=== PATIENT | female | born 1960 | race Caucasian/White ===

== ENCOUNTER → 2017-05-16 | Outpatient (CLI) | payer BC, SELFPAY ==
[~2017-05-16] MED LIST: Adipex-P37.5 MG PO; Anecream 4% Ki1 EACH; CLON.5 PO; CRUTCH3 USE; ESTRTP; HYDACE5 PO; ORACONB; Roxicodone15 MG PO; SERT100 PO; VIT B12 INJECTION
== END | disposition home or self-care (01) ==
LOC: OLS 08:57
DX: E55.9 Vitamin D deficiency, unspecified (principal)
CPT/HCPCS: 82306

== ENCOUNTER → 2018-06-20 | Outpatient (CLI) | payer BC ==
[2018-06-20 14:10] LABS: Stool Occult Bld Immuno 1 Negative (NEGATIVE)
== END ==
LOC: LAB 09:50 → LAB SHORT 09:50 → LAB FUT 06-10 15:55
PROVIDERS: Student in an Organized Health Care Education/Training Program
DX: D50.9 Iron deficiency anemia, unspecified (principal)
CPT/HCPCS: 82274

== ENCOUNTER → 2018-09-25 | Outpatient (CLI) | payer OTHER ==
[~2018-09-25] MED LIST changes: +CYAN1000I IM; +VITAMIN D310000 UNIT PO
[2018-09-25 18:08] LABS: Free Thyroxine 0.79 ng/dL (0.70-1.60)
[2018-09-25 18:11] LABS: Thyroid Stimulating Hormone 0.858 uIU/mL (0.360-4.800)
== END | disposition home or self-care (01) ==
LOC: LAB 17:39 → LAB SHORT 17:39
PROVIDERS: Internal Medicine Hematology & Oncology
DX: R53.81 Other malaise (principal); R53.83 Other fatigue
CPT/HCPCS: 84439; 84443

== ENCOUNTER 2018-11-12 09:40 | Day surgery (SDC) | payer OTHER ==
[~2018-11-12] VITALS: Ht 165.1 cm; Wt 184.0 kg
== END 2018-11-12 12:04 | disposition home or self-care (01) ==
LOC: ORSCSDS 09:40
PROVIDERS: Internal Medicine Gastroenterology
PROC: 0DJD8ZZ Inspection of Lower Intestinal Tract, Via Natural or Artificial Opening Endoscopic (ICD-10-PCS; principal; 2018-11-12 10:45)
DX: D50.9 Iron deficiency anemia, unspecified (principal); Z98.84 Bariatric surgery status; K64.8 Other hemorrhoids; Z79.899 Other long term (current) drug therapy
CPT/HCPCS: J2704; J7120

== ENCOUNTER 2019-03-06 06:03 | Day surgery (SDC) | payer OTHER ==
[~2019-03-06] VITALS: Ht 165.1 cm; Wt 86.7 kg
[~2019-03-06 06:03] MED LIST changes: +Roxicodone15 MG
== END 2019-03-06 09:20 | disposition home or self-care (01) ==
LOC: ORSCSDS 06:03
PROVIDERS: Podiatrist Foot & Ankle Surgery
PROC: 0MQQ0ZZ Repair Right Ankle Bursa and Ligament, Open Approach (ICD-10-PCS; principal; 2019-03-06 07:30)
PROC: 0SBF4ZZ Excision of Right Ankle Joint, Percutaneous Endoscopic Approach (ICD-10-PCS; principal; 2019-03-06 07:30)
DX: M19.071 Primary osteoarthritis, right ankle and foot (principal); M25.371 Other instability, right ankle; M25.571 Pain in right ankle and joints of right foot; Z79.899 Other long term (current) drug therapy
CPT/HCPCS: C1713; J0171; J0690; J1100; J2250; J2405; J2704; J3010; J7120

== ENCOUNTER 2020-03-16 08:47 | Day surgery (SDC) | payer OTHER ==
[~2020-03-16] VITALS: Ht 167.6 cm; Wt 84.1 kg
[~2020-03-16 08:47] MED LIST changes: -CYAN1000I IM; +CYAN1000I INJ; -ESTRTP; +Estrace Vagin42.5 GM VAG; +Pristiq100 MG PO; -Roxicodone15 MG
--- NOTE | 2020-03-16 09:36 | NUR ---
Patient up to Ambulate independently. Gait steady. History, Chart, Medications and Allergies reviewed before start of procedure. Lungs clear T/O to Auscultation. Patient confirms NPO status and agrees with scheduled surgery. Pre-Op teaching done. Pt verbalizes understanding.
--- NOTE | 2020-03-16 13:15 | NUR ---
PT TRANSFERRED TO ROOM VIA STRETCHER, A/O X 4, PLEASANT/COOPERATIVE, POST OP VS COMMENCED AND STABLE. PT DENIES N/V, RATES PAIN AT 6/10, GOOD CAPILLARY REFIL TO TOES ON OPERATIVE LIMB. BULKY GAUZE AND DEBORA WRAP DRESSING C/D/I. PT TOLERATING PO INTAKE. HOSPITALIST NOTIFIED OF PT'S TRANSFER TO ROOM
--- NOTE | 2020-03-16 17:46 | NUR ---
shift summary: vss, no acute changes. operative limb with good capillary refill, dressing c/d/i. Pt tolerating PO intake, has worked with physical therapy, a/o x4, pleasant/cooperative. Dr Powers rounded on pt. Pt reports pain controlled with PO medication per MAR
--- NOTE | 2020-03-17 04:50 | NUR ---
SHIFT SUMMARY POD 1 ARTHRODESIS R ANKLE PT AA0X4, HAS BEEN SLEEPING T/O SHIFT. PT REPOSITIONS SELF IN BED. MANAGED PAIN PER EMAR.NEW SCHEDULED DOSING OF HOME PAIN MEDICATIONS. STATES RELIEF. PT VOIDING WELL TOLERATING PO. PLAN IS TO MAKE SURE PAIN MANAGED AND DISHCARGE HOME AFTER SEEING PT
--- NOTE | 2020-03-17 04:54 | NUR ---
SHIFT SUMMARY POD 2 R HUMERUS ORIF PT HAS BEEN ALERT AT TIMES DURING SHIFT. WILL OFTEN TRAIL OFF AND FALL ASLEEP DURING CONVERSATIONS, SHE HAS REFUSED TO ANSWER SOME QUESTIONS AND WILL OCCASIONALLY SWEAR AND THREATEN STAFF. DOES NOT USE CALL LIGHT. WILL CALL OUT UNTIL STAFF ANSWERS. CONT OF BLADDER. PT CIWA REMAINED BELOW 8 DURING CHECKS USING ATIVAN PRN. PAIN MANAGED WITH 2 NORCO. PT SLEEPING IN BED AFTER TAKING. REFUSED TO WEAR CONT BIOX, NOT RECEPTIVE TO EDUCATION ABOUT TAKING DEEP BREATHS. SLING REMAINS IN PLACE. PT UP TO BSC WITH 2 PER ASSISST WITH KARLEY
[2020-03-17 05:04] LABS: BASOPHILS ABSOLUTE AUTO 0.04 K/mm3 (0.00-0.23); BASOPHILS PERCENT AUTO 0 % (0-2); EOSINOPHILS ABSOLUTE AUTO 0.17 K/mm3 (0.00-0.68); EOSINOPHILS PERCENT AUTO 2 % (0-6); Hemoglobin 12.8 g/dL (11.5-16.0); IMMATURE GRAN ABSOLUTE AUTO 0.02 K/mm3 (0.00-0.10); IMMATURE GRAN PERCENT AUTO 0 % (0-1); LYMPHOCYTES PERCENT AUTO 12 % (21-46); MONOCYTES ABSOLUTE AUTO 0.94 K/mm3 (0.16-1.47); MONOCYTES PERCENT AUTO 9 % (4-13); Mean Corpuscular HGB 28.9 pg (26.0-34.0); Mean Corpuscular HGB Conc 30.5 g/dL (31.5-36.5); Mean Corpuscular Volume 95 fL (80-100); Mean Platelet Volume 9.4 fL (9.1-12.4); NEUTROPHILS ABSOLUTE AUTO 8.22 K/mm3 (1.96-9.15); NEUTROPHILS PERCENT AUTO 77 % (41-73); Platelet Count 297 K/mm3 (150-400); RDW Coefficient Variation 12.8 % (11.7-14.2); RDW Standard Deviation 45.1 fL (35.1-46.3); Red Blood Cell Count 4.43 M/mm3 (3.80-5.20); White Blood Cell Count 10.69 K/mm3 (4.00-11.30)
[2020-03-17 05:28] LABS: Anion Gap 4 mmol/L (6-16); Blood Urea Nitrogen 9 mg/dL (8-24); Bun/Creatinine Ratio 14.6 (12.0-20.0); CO2, Blood 29 mmol/L (21-32); Chloride, Blood 105 mmol/L (98-108); Creatinine, Blood 0.62 mg/dL (0.40-1.00); Glomerular Filtration Rate >60 (60-); Glucose, Blood 133 mg/dL (70-99); Potassium, Blood 3.7 mmol/L (3.5-5.5); Sodium, Blood 138 mmol/L (136-145)
--- NOTE | 2020-03-17 10:33 | NUR ---
provided pt with discharge teaching and printed material, removed peripheral IV WNL. pt states understanding of instructions. pt transferred to awaiting vehicle via wheelchair with personal belongings in her bag with her.
--- NOTE | 2020-03-17 10:35 | NUR ---
PATIENT D/C'D HOME AT THIS TIME. D/C PAPERS REVIEWED WITH PATIENT BY Benny MUNOZ RN.
== END 2020-03-17 10:34 | disposition home or self-care (01) ==
LOC: ORSCMMR 08:47 → SURS 08:47 → ORSCMMR 08:48 → ORD 10:30 → ORSCMMR 10:30 → SURS 13:12 → ORSCMMR 03-17 10:34 → SURS 03-17 10:34
PROVIDERS: Internal Medicine; Podiatrist Foot & Ankle Surgery
PROC: 0SGF04Z Fusion of Right Ankle Joint with Internal Fixation Device, Open Approach (ICD-10-PCS; principal; 2020-03-16 10:30)
DX: M19.071 Primary osteoarthritis, right ankle and foot (principal); F41.9 Anxiety disorder, unspecified; Z79.899 Other long term (current) drug therapy
CPT/HCPCS: 36415; 73610; 80048; 85025; 97116; 97161; C1713; J0690; J2250; J2704; J3010; J7120

== ENCOUNTER 2020-10-15 18:54 | Emergency (ER) | payer MEDICARE, OTHER ==
[~2020-10-15] VITALS: Ht 167.6 cm; Wt 86.2 kg
[2020-10-15] MEDS ORDERED: BUSPIRONE HCL10 M3 PO (20:23)
== END 2020-10-15 20:27 | disposition home or self-care (01) ==
LOC: ER 18:54
DX: F41.0 Panic disorder [episodic paroxysmal anxiety] (principal); Z88.5 Allergy status to narcotic agent; Z88.6 Allergy status to analgesic agent; Z79.899 Other long term (current) drug therapy
CPT/HCPCS: 99284; A9270

== ENCOUNTER 2021-02-26 10:24 | Emergency (ER) | payer MEDICARE, OTHER ==
[~2021-02-26] VITALS: Ht 165.1 cm; Wt 86.2 kg
[~2021-02-26 10:24] MED LIST changes: +BUSPIRONE HCL10 M3 PO
== END 2021-02-26 13:17 | disposition home or self-care (01) ==
LOC: ER 10:24
DX: R51.9 Headache, unspecified (principal); M54.50 Low back pain, unspecified; Z88.8 Allergy status to other drugs, medicaments and biological substances; Z79.899 Other long term (current) drug therapy; Z88.5 Allergy status to narcotic agent
CPT/HCPCS: 36415; 96374; 99283-25; J0706; J1790; J7030

== ENCOUNTER 2021-12-04 13:11 | Observation (INO) | payer MEDICARE, OTHER ==
[~2021-12-04] VITALS: Ht 165.1 cm; Wt 82.0 kg
[~2021-12-04 13:11] MED LIST changes: +OXYC10TA19 PO
[2021-12-04 13:44] LABS: BASOPHILS ABSOLUTE AUTO 0.04 K/mm3 (0.00-0.23); BASOPHILS PERCENT AUTO 1 % (0-2); EOSINOPHILS ABSOLUTE AUTO 0.04 K/mm3 (0.00-0.68); EOSINOPHILS PERCENT AUTO 1 % (0-6); Hematocrit 37.3 % (33.0-51.0); Hemoglobin 11.4 g/dL (11.5-16.0); IMMATURE GRAN ABSOLUTE AUTO 0.02 K/mm3 (0.00-0.10); IMMATURE GRAN PERCENT AUTO 0 % (0-1); LYMPHOCYTES ABSOLUTE AUTO 1.87 K/mm3 (0.84-5.20); LYMPHOCYTES PERCENT AUTO 22 % (21-46); MONOCYTES ABSOLUTE AUTO 0.28 K/mm3 (0.16-1.47); MONOCYTES PERCENT AUTO 3 % (4-13); Mean Corpuscular HGB 29.4 pg (26.0-34.0); Mean Corpuscular HGB Conc 30.6 g/dL (31.5-36.5); Mean Corpuscular Volume 96 fL (80-100); Mean Platelet Volume 9.8 fL (9.1-12.4); NEUTROPHILS ABSOLUTE AUTO 6.12 K/mm3 (1.96-9.15); NEUTROPHILS PERCENT AUTO 73 % (41-73); Platelet Count 283 K/mm3 (150-400); RDW Coefficient Variation 12.6 % (11.7-14.2); RDW Standard Deviation 44.6 fL (35.1-46.3); Red Blood Cell Count 3.88 M/mm3 (3.80-5.20); White Blood Cell Count 8.37 K/mm3 (4.00-11.30)
[2021-12-04 14:08] LABS: Albumin, Blood 3.5 g/dL (3.4-5.0); Albumin/Globulin Ratio 1.2 (0.8-1.8); Bilirubin, Total 0.3 mg/dL (0.1-1.0); Bun/Creatinine Ratio 48.8 (12.0-20.0); Calcium, Blood 8.9 mg/dL (8.5-10.1); Creatinine, Blood 0.62 mg/dL (0.40-1.00); Potassium, Blood 4.1 mmol/L (3.5-5.5); Total Protein, Blood 6.5 g/dL (6.4-8.2)
[2021-12-04] MEDS ORDERED: PROZAC40 MG PO (14:45)
[2021-12-04 16:38] LABS: Source, Urine Clean Catch
[2021-12-04 16:45] LABS: Appearance, Urine Clear (Clear); Blood, Urine 1+ (Neg); Color, Urine Yellow (P-Yellow); Glucose Qualitative, Urine Neg (Neg); Ketones, Urine 1+ (Neg); Leukocyte Esterase, Urine 1+ (Neg); Nitrite, Urine Neg (Neg); Protein, Urine 1+ (Neg); Specific Gravity, Urine 1.025 (1.003-1.022); Urobilinogen, Urine NORM (Normal)
[2021-12-04 16:59] LABS: Bilirubin, Urine 1+ (Neg)
[2021-12-04 17:00] LABS: Bacteria Few /hpf; Squamous Epithelial Cells Few /hpf (Few)
[2021-12-04 18:24] LABS: Hemoglobin 10.6 g/dL (11.5-16.0)
--- NOTE | 2021-12-04 18:47 | NUR ---
REPORT RECIEVED FROM ER NURSE. WILL PASS ON INFORMATION TO ONCOMING NIGHT RN.
--- NOTE | 2021-12-04 19:01 | NUR ---
ARRIVAL PT ARRIVED TO UNIT AT 1850. TRANSFERED SELF TO BED FROM [facility]. DENIED WEAKNESS OR DIZZINESS WITH TRANSFER. SHE DENIES ANY PAIN OR NAUSEA AT THIS TIME. BUT REPORTS CHRONIC EMESIS SINCE GASTRIC BYPASS IN 2004. PROTONIX INFUSION RUNNING AT THIS TIME. WILL HAND OFF REPORT TO ONCOMING RN. CALL LIGHT IN REACH. ORIENTED TO UNIT.
[2021-12-05 00:39] LABS: Hematocrit 27.2 % (33.0-51.0); Hemoglobin 8.7 g/dL (11.5-16.0)
--- NOTE | 2021-12-05 05:06 | NUR ---
61 YEAR OLDFEMALE WITH MULTIPLE ORTHOPEDIC PROCEDURES INCLIDING CERVICAL FUSION & BACK FUSIONS X 2 WITH SCHEDULED REEVAL YESTERDAY IN [place] AT NEUROLOGY FOR POTENTIAL MORE SURGERY? pt HAS HX OF GASTRIC BYPASS 2004 & SHE SAYS DUE TO PROCEDURE SHE CANT TAKE NSAIDS BUT SHE HAS BEEN TAKING THEN FOR PAIN IN BACK & HS ACTIVE S/SX OF UPPER GI BLEED WITH 150 ML LIQUID MAROON STOOL ON TOILET. SHE HAS GI CONSULT WITH DR LOCO & HAS ENDOSCOPY PLANNED.
[2021-12-05 05:57] LABS: BASOPHILS ABSOLUTE AUTO 0.04 K/mm3 (0.00-0.23); BASOPHILS PERCENT AUTO 1 % (0-2); EOSINOPHILS ABSOLUTE AUTO 0.33 K/mm3 (0.00-0.68); EOSINOPHILS PERCENT AUTO 5 % (0-6); Hematocrit 27.6 % (33.0-51.0); Hemoglobin 8.7 g/dL (11.5-16.0); IMMATURE GRAN ABSOLUTE AUTO 0.01 K/mm3 (0.00-0.10); IMMATURE GRAN PERCENT AUTO 0 % (0-1); LYMPHOCYTES PERCENT AUTO 47 % (21-46); MONOCYTES PERCENT AUTO 4 % (4-13); Mean Corpuscular HGB 29.5 pg (26.0-34.0); Mean Corpuscular HGB Conc 31.5 g/dL (31.5-36.5); Mean Corpuscular Volume 94 fL (80-100); Mean Platelet Volume 9.8 fL (9.1-12.4); NEUTROPHILS ABSOLUTE AUTO 3.04 K/mm3 (1.96-9.15); NEUTROPHILS PERCENT AUTO 43 % (41-73); Platelet Count 226 K/mm3 (150-400); RDW Coefficient Variation 12.6 % (11.7-14.2); RDW Standard Deviation 43.5 fL (35.1-46.3); Red Blood Cell Count 2.95 M/mm3 (3.80-5.20); White Blood Cell Count 7.02 K/mm3 (4.00-11.30)
[2021-12-05 06:22] LABS: Albumin, Blood 2.9 g/dL (3.4-5.0); Albumin/Globulin Ratio 1.1 (0.8-1.8); Bilirubin, Total 0.2 mg/dL (0.1-1.0); Creatinine, Blood 0.8 mg/dL (0.40-1.00); Globulin, Blood 2.6 g/dL (2.2-4.0); Potassium, Blood 4.1 mmol/L (3.5-5.5); Total Protein, Blood 5.5 g/dL (6.4-8.2)
--- NOTE | 2021-12-05 08:07 | NUR ---
History, Chart, Medications and Allergies reviewed before start of procedure. Patient confirms NPO status and agrees with scheduled surgery. Patient reports no food or drink for at least 8 hours.
--- NOTE | 2021-12-05 08:14 | NUR ---
PATIENT REPORTS LEAVING HER DENTURES AT HOME.
--- NOTE | 2021-12-05 08:31 | NUR ---
12/05/21 0831 Bibiana Montoya HISTORY, CHART, MEDICATIONS AND ALLERGIES REVIEWED BEFORE START OF PROCEDURE. PATIENT CONFIRMS NPO STATUS AND AGREES WITH SCHEDULED PROCEDURE. 3-LEAD EKG REVIEWED WITH PHYSICIAN PRIOR TO START OF PROCEDURE. MONITOR INTACT WITH CONTINUOUS PULSE OXIMETRY,CAPNOGRAPHY, 3-LEAD EKG, INTERMITTENT BP. SUPPLEMENTAL O2 TO BE TITRATED THROUGHOUT PROCEDURE TO MAINTAIN O2 SATURATION ABOVE 90%. PATIENT DETERMINED TO BE ASA APPROPRIATE FOR PROPOFOL SEDATION PRIOR TO START OF PROCEDURE BY DR. LOCO. MALLAMPATI CLASS 1 AIRWAY: COMPLETE VISULATIZATION OF THE SOFT PALATE. STOP BANG ASSESSMENT SCORE 2.
--- NOTE | 2021-12-05 08:58 | NUR ---
DR LOCO AT BEDSIDE IN STEPDOWN RECOVERY POST EGD GIVING PATIENT RESULTS OF PROCEDURE.
[2021-12-05 12:25] LABS: Hematocrit 27.2 % (33.0-51.0); Hemoglobin 8.8 g/dL (11.5-16.0)
[2021-12-05] MEDS ORDERED: OMEP20ER PO (12:28)
--- NOTE | 2021-12-05 13:46 | NUR ---
DISCHARGE SUMMARY PATIENT ALERT AND ORIENTED. NPO IN AM, UNDERWENT EGD, STILL PASSING DARK MAROON STOOOLS. EGD WITH DR LOCO REVEALED LARGE STOMACH ULCER, NOT ACTIVELY BLEEDING. PT OKAY TO GO HOME PER DR LOCO, WILL FOLLOW UP WITH HIM IN 2 MOS FOR REPEAT EGD. DISCHARGE ORDERS GIVEN BY DR RAMIREZ. DISCHARGE EDUCATION GIVEN ON NEW MEDS, DIET, MEDS TO AVOID, AND FOLLOW UP APPTS. POWERGLIDE DC'D WNL. PT TOLERATED WELL. LEFT UNIT AT 1345 VIA WHEELCHAIR FOR HOME WITH FAMILY.
== END 2021-12-05 14:40 | disposition home or self-care (01) ==
LOC: ER 13:11 → ERHOLD 13:12 → MEDS 13:13 → ER 17:19 → MEDS 17:19 → ERHOLD 17:19 → MEDS 18:47 → ERHOLD 18:47 → MEDS 21:33
PROVIDERS: Emergency Medicine; Internal Medicine Gastroenterology; Physician Assistant; ADMIT Internal Medicine
PROC: 0DJ08ZZ Inspection of Upper Intestinal Tract, Via Natural or Artificial Opening Endoscopic (ICD-10-PCS; principal; 2021-12-05 12:15)
DX: K95.89 Other complications of other bariatric procedure (principal); K25.4 Chronic or unspecified gastric ulcer with hemorrhage; D25.9 Leiomyoma of uterus, unspecified; G89.4 Chronic pain syndrome; F41.9 Anxiety disorder, unspecified; F32.A Depression, unspecified; Z96.652 Presence of left artificial knee joint; Z96.661 Presence of right artificial ankle joint; M48.061 Spinal stenosis, lumbar region without neurogenic claudication; F11.20 Opioid dependence, uncomplicated; Z98.1 Arthrodesis status
CPT/HCPCS: 36415; 74176; 80053; 81001; 82272; 85014; 85018; 85025; 86850; 86900; 86901; 87086; 93005; 93010; 96361; 96374; 96376; 99285-25; A9270; C9113; J2405; J2704; J7030; J7120

== ENCOUNTER 2022-01-05 06:40 | Day surgery (SDC) | payer MEDICARE, OTHER ==
[~2022-01-05] VITALS: Ht 165.1 cm; Wt 80.4 kg
[~2022-01-05 06:40] MED LIST changes: +ESTRADIOL42.5 GM; +OMEP20ER PO; +OXYC15ER PO; +PROZAC40 MG PO; +VOLTAREN ARTHRI20 GM
== END 2022-01-05 09:02 | disposition home or self-care (01) ==
LOC: ORSCSDS 06:40
PROVIDERS: Internal Medicine Gastroenterology
PROC: 0DJD8ZZ Inspection of Lower Intestinal Tract, Via Natural or Artificial Opening Endoscopic (ICD-10-PCS; principal; 2022-01-05 08:00)
DX: D50.9 Iron deficiency anemia, unspecified (principal); R63.4 Abnormal weight loss; K92.2 Gastrointestinal hemorrhage, unspecified; K64.4 Residual hemorrhoidal skin tags; Z87.891 Personal history of nicotine dependence; Z79.899 Other long term (current) drug therapy
CPT/HCPCS: J2704; J7120

== ENCOUNTER 2023-06-09 08:40 | Emergency (ER) | payer MEDICARE, OTHER ==
[~2023-06-09] VITALS: Ht 165.1 cm; Wt 81.7 kg
[2023-06-09 10:45] VITALS: BP 117/93
== END 2023-06-09 10:45 | disposition home or self-care (01) ==
LOC: ER 08:40
DX: S80.02XA Contusion of left knee, initial encounter (principal); W18.30XA Fall on same level, unspecified, initial encounter; Z88.6 Allergy status to analgesic agent; Z88.8 Allergy status to other drugs, medicaments and biological substances; Z88.5 Allergy status to narcotic agent; Z79.899 Other long term (current) drug therapy; G47.00 Insomnia, unspecified; M19.90 Unspecified osteoarthritis, unspecified site
CPT/HCPCS: 73562-LT; 99283-25

== ENCOUNTER → 2025-01-15 | Outpatient (CLI) | payer MEDICARE ==
[~2025-01-15] MED LIST changes: +DESV50 PO; +ERGO400 PO; +QUETIAPINE FUM10011 PO; +[UNRECOGNIZED DRUG - CODE] PO
[2025-01-23 07:26] LABS: 6-ACETYLMORPHINE, URN, QUANT <10 ng/mL; CODEINE, URN, QUANT <20 ng/mL; HYDROCODONE, URN, QUANT <20 ng/mL; HYDROMORPHONE, URN, QUANT <20 ng/mL; MORPHINE, URN, QUANT <20 ng/mL; NORHYDROCODONE, URN, QUANT <20 ng/mL; NOROXYCODONE, URN, QUANT 1981 ng/mL; NOROXYMORPHONE, URN, QUANT 306 ng/mL; OXYCODONE, URN, QUANT 430 ng/mL; OXYMORPHONE, URN, QUANT 22 ng/mL
== END | disposition home or self-care (01) ==
LOC: LAB SHORT 10:49 → LAB 10:49
PROVIDERS: Physician Assistant
DX: Z51.81 Encounter for therapeutic drug level monitoring (principal); Z79.891 Long term (current) use of opiate analgesic
CPT/HCPCS: G0480